=== PATIENT | male | born 1995 | race Asian ===

== ENCOUNTER 2022-01-16 14:28 | Emergency (ER) | payer MEDICAID ==
[~2022-01-16] VITALS: Ht 172.7 cm; Wt 79.0 kg
[2022-01-16 19:26] VITALS: BP 142/86
== END 2022-01-16 20:03 | disposition home or self-care (01) ==
LOC: EMS 14:30
DX: S09.90XA Unspecified injury of head, initial encounter (principal); F17.210 Nicotine dependence, cigarettes, uncomplicated; Z98.890 Other specified postprocedural states; V89.2XXA Person injured in unspecified motor-vehicle accident, traffic, initial encounter; Y93.89 Activity, other specified; Y92.410 Unspecified street and highway as the place of occurrence of the external cause; Y99.8 Other external cause status
CPT/HCPCS: 70450; 99284